=== PATIENT | female | born 1975 | race Two or more races ===

== ENCOUNTER 2023-02-16 23:54 | Emergency (ER) | payer MEDICAID, OTHER ==
[~2023-02-16] VITALS: Ht 167.6 cm; Wt 71.3 kg
[2023-02-17] MEDS ORDERED: HYDROcodone-ACET 5/325MG TAB PO ONE (00:45)
[2023-02-17] MEDS ORDERED: TETANUS-DIPTH-ACEL PERTUSSIS 0.5ML SYR Tdap IM ONE (00:45)
[2023-02-17] MEDS ORDERED: LIDOCAINE 1% HCL (LOCAL ANESTH.) INJ 20ML MDV ID ONE (00:45)
[2023-02-17] MEDS ORDERED: CEPH500C PO (03:55)
[2023-02-17] MEDS ORDERED: MUPI2OIN2 EX (03:55)
[2023-02-17] MEDS ORDERED: IBUP1TAB5 PO (03:55)
[2023-02-17] MEDS ORDERED: ceFAZolin IM 1GM/2.5ML STERILE WATER IM ONE (04:00)
[2023-02-17] MEDS ORDERED: cefTRIAXone SOD 1,000 MG VL IM ONE (05:15)
[2023-02-17 05:52] VITALS: BP 121/78; PULSE 68; RESP 20; TEMP 97.6; O2SAT 99
== END 2023-02-17 05:58 | disposition home or self-care (01) ==
LOC: ER 02-17 00:09
DX: S61.412A Laceration without foreign body of left hand, initial encounter (principal); W26.8XXA Contact with other sharp object(s), not elsewhere classified, initial encounter; Y93.89 Activity, other specified; Y92.89 Other specified places as the place of occurrence of the external cause; Y99.8 Other external cause status
CPT/HCPCS: 12042; 73130; 90471; 90715; 96372; 99284; J0696; J2001; J0690